=== PATIENT | male | born 1945 | race Caucasian/White ===

== ENCOUNTER → 2016-08-23 | Outpatient (REF) | payer MEDICARE, OTHER ==
[2016-08-23 12:14] LABS: ALBUMIN 4.8 g/dL (3.4-5.0); ANION GAP 16.8 MEQ/L (3-15); CALCULATED IONIZED CALCIUM 4.1 mg/dL (3.8-4.6); TOTAL PROTEIN 7.8 g/dL (6.4-8.5)
== END ==
LOC: LAB 10:27
PROVIDERS: ATTEND Family Medicine
DX: E78.4 Other hyperlipidemia (principal); I25.10 Atherosclerotic heart disease of native coronary artery without angina pectoris
CPT/HCPCS: 80053; 80061

== ENCOUNTER → 2016-10-10 | Outpatient (CLI) | payer MEDICARE, OTHER ==
[~2016-10-10] MED LIST: ASPI81TA55 PO; ATN25T PO; ATOR40TA2 PO; GARL10002 PO; LSNP20T PO; MULT-35 PO; NITR0.4T7 SL; OMG1KC PO; RANI75TA21 PO; SIMV40TA2 PO
[2016-10-10 08:51] LABS: ALBUMIN 4.4 g/dL (3.4-5.0); TOTAL PROTEIN 7.3 g/dL (6.4-8.5)
== END ==
LOC: LAB 08:19
PROVIDERS: ATTEND Family Medicine
DX: M79.1 Myalgia (principal); T46.6X5A Adverse effect of antihyperlipidemic and antiarteriosclerotic drugs, initial encounter
CPT/HCPCS: 36415; 80076; 82550